=== PATIENT | female | born 1960 | race Asian ===

== ENCOUNTER 2021-09-11 19:45 | Emergency (ER) | payer SELFPAY ==
[2021-09-11 20:44] VITALS: BP 122/81
--- NOTE | 2021-09-12 04:58 | Emergency Department Report ---
ED General Adult HPI - General Chief complaint: Weakness Stated complaint: GENERAL WEAKNESS/COUGH Time Seen by Provider: 09/12/21 02:28 Source: patient Mode of arrival: Ambulatory Limitations: No Limitations - History of Present Illness Initial comments: 61-year-old female smoker presents emerged from complaining of a few month history of coughing which has reemerged over the last 3 to 4 days, unknown etiology which caused her to leave work today to seek treatment. She reports no fever, chills, sweats but no nausea, no vomiting, no chest pain, no shortness of breath does get occasional mucus production. Unsure about contact with with any coronavirus. Denies any diarrhea or rashes, hemoptysis, hematemesis hematochezia. -: Gradual Radiation: non-radiation Consistency: constant Improves with: none Worsens with: none Associated Symptoms: denies other symptoms Treatments Prior to Arrival: none - Related Data Previous Rx's Medication Instructions Recorded Last Taken Type Benzonatate [Tessalon Perles] 100 mg PO Q8HR #30 cap 09/12/21 Unknown Rx Allergies Allergy/AdvReac Type Severity Reaction Status Date / Time No Known Allergies Allergy Verified 09/11/21 20:44 ED Review of Systems ROS: Stated complaint: GENERAL WEAKNESS/COUGH Other details as noted in HPI Comment: All other systems reviewed and negative ED Past Medical Hx - Medications Home Medications: Home Medications Medication Instructions Recorded Confirmed Last Taken Type Benzonatate [Tessalon Perles] 100 mg PO Q8HR #30 cap 09/12/21 Unknown Rx ED Physical Exam - General Limitations: No Limitations General appearance: alert, in no apparent distress - Head Head exam: Present: atraumatic, normocephalic - Eye Eye exam: Present: normal appearance, PERRL, EOMI Pupils: Present: normal accommodation - ENT ENT exam: Present: normal exam, normal orophraynx, mucous membranes moist, TM's normal bilaterally - Neck Neck exam: Present: normal inspection, full ROM - Respiratory Respiratory exam: Present: normal lung sounds bilaterally. Absent: respiratory distress, wheezes, rales, chest wall tenderness, accessory muscle use - Cardiovascular Cardiovascular Exam: Present: regular rate, normal rhythm. Absent: systolic m urmur, diastolic murmur, rubs, gallop - GI/Abdominal GI/Abdominal exam: Present: soft, normal bowel sounds - Extremities Exam Extremities exam: Present: normal inspection - Back Exam Back exam: Present: normal inspection - Neurological Exam Neurological exam: Present: alert, oriented X3 - Psychiatric Psychiatric exam: Present: normal affect, normal mood - Skin Skin exam: Present: warm, dry, intact, normal color. Absent: rash ED Course Vital Signs 09/11/21 19:45 Temperature 98.4 F Pulse Rate 89 Respiratory 19 Rate Blood Pressure 122/81 [Left] O2 Sat by Pulse 97 Oximetry ED Medical Decision Making - Medical Decision Making This patient presents with acute cough, most consistent with uncomplicated. Differential diagnosis includes bronchitis, COPD, liver disease, COVID-19. Presentation not consistent with acute bacterial pneumonia, influenza, asthma, transient airway hyperresponsiveness. Presentation not consistent with chronic causes of cough (including GERD, asthma, postnasal discharge, medication side effect, CHF, lung cancer or mass). Plan: supportive care, reassess Critical care attestation.: If time is entered above; I have spent that time in minutes in the direct care of this critically ill patient, excluding procedure time. ED Disposition Clinical Impression: Cough Disposition: 01 HOME / SELF CARE / HOMELESS Is pt being admited?: No Does the pt Need Aspirin: No Condition: Stable Instructions: Cough, Adult, Cool Mist Vaporizer Prescriptions: Benzonatate [Tessalon Perles] 100 mg PO Q8HR #30 cap Referrals: JAMIL ESCOBAR MD [Primary Care Provider] - 3-5 Days Forms: Work/School Release Form(ED)
== END 2021-09-12 05:25 | disposition home or self-care (01) ==
LOC: ED 19:45
DX: R05.9 Cough, unspecified (principal)
CPT/HCPCS: 99282